=== PATIENT | male | born 1995 | race Two or more races ===

== ENCOUNTER 2023-12-20 11:50 | Emergency (ER) | payer MEDICAID, OTHER ==
[~2023-12-20] VITALS: Ht 167.6 cm; Wt 66.4 kg
[2023-12-20 13:25] VITALS: BP 116/80; PULSE 80; RESP 16; TEMP 98.7; O2SAT 98
== END 2023-12-20 13:40 | disposition home or self-care (01) ==
LOC: ER 11:50
DX: S01.01XD Laceration without foreign body of scalp, subsequent encounter (principal); Z48.02 Encounter for removal of sutures; X58.XXXD Exposure to other specified factors, subsequent encounter